=== PATIENT | female | born 1955 | race Caucasian/White ===

== ENCOUNTER 2025-01-04 10:10 | Outpatient (CLI) | payer MEDICARE, SELFPAY ==
[2025-01-04 17:25] LABS: Basophils # 0.1 K/mm3 (0-0.2); Basophils % 0.9 % (0.1-2.0); Eosinophils # 0.2 Kmm3 (0.0-0.4); Eosinophils % 3.3 % (0.1-12.0); Hematocrit 43.4 % (37.0-47.0); Hemoglobin 13.5 g/dL (12.2-16.2); Immature Granulocytes # 0.01 10^3uL; Immature Granulocytes % 0.1 %; Lymphocytes # 2.3 K/mm3 (0.7-4.5); Lymphocytes % 34.1 % (10-50); Mean Corpuscular HGB Conc 31.1 g/dL (31.8-35.4); Mean Corpuscular Hemoglobin 27.7 pg (27.0-31.2); Mean Corpuscular Volume 88.9 fl (81-99); Mean Platelet Volume 12.9 fl (7.4-10.4); Monocytes # 0.8 K/mm3 (0.1-1.0); Monocytes % 11.4 % (1.7-9.3); Neutrophils # 3.4 K/mm3 (1.8-7.8); Neutrophils % 50.2 % (37.0-80.0); Nucleated Red Blood Cells # 0 10^3/uL; Nucleated Red Blood Cells % 0 %; Platelet Count 230 K/mm3 (142-424); Red Blood Count 4.88 M/mm3 (4.20-5.40); Red Cell Distribution Width 14.6 % (11.5-17.5); White Blood Count 6.7 K/mm3 (4.8-10.8)
[2025-01-04 17:51] LABS: Alanine Aminotransferase 20 U/L (12-78); Albumin Level 4.5 g/dl (3.5-5.0); Albumin/Globulin Ratio 1.5 (1.1-1.8); Alkaline Phosphatase 86 U/L (38-126); Anion Gap 13.1 mEq/L (5-15); Aspartate Amino Transferase 28 U/L (14-36); Bilirubin,Total 1.2 mg/dl (0.2-1.3); Blood Urea Nitrogen 34 mg/dl (7-17); Calcium 9.7 mg/dl (8.4-10.2); Carbon Dioxide 27 mmol/L (22.0-30.0); Chloride 104 mmol/L (98-107); Chol/HDL Ratio 4.4 (1-3.5); Cholesterol 220 mg/dl (140-200); Estimated Glomerular Filt Rate 99 ml/min (>60); GFR (African American) 119 ML/MIN (>60); Glucose 77 mg/dl (74-100); HDL Cholesterol 50 mg/dl (40-60); Potassium 5.1 mmoL/L (3.5-5.1); Sodium 139 mmol/L (136-145); Total Protein,Serum 7.5 g/dl (6.3-8.2); Triglycerides 180 mg/dl (30-150); VLDL Cholesterol 36 mg/dL (0-40)
[2025-01-04 18:02] LABS: Direct LDL Cholesterol 126.05 mg/dL (100-129)
[2025-01-04 19:12] LABS: Iron 112 ug/dL (37-170)
[2025-01-04 19:21] LABS: Total Iron Binding Capacity 322 ug/dL (265-497)
[2025-01-04 19:48] LABS: Ferritin 64.8 ng/ml (11.1-264)
[2025-01-04 19:55] LABS: HIV Combo NEGATIVE (Negative)
[2025-01-04 20:02] LABS: Hepatitis C Ab Qual. W/ RFX NEGATIVE (Negative)
[2025-01-05 06:15] LABS: Hepatitis B Surface Antigen Negative (Negative)
== END 2025-01-04 23:59 | disposition home or self-care (01) ==
LOC: LAB.DROPOF 01-05 12:41
PROVIDERS: PCP Nurse Practitioner Family; Visit Provider Nurse Practitioner Family
DX: Z00.00 Encounter for general adult medical examination without abnormal findings (principal); Z11.59 Encounter for screening for other viral diseases; Z11.4 Encounter for screening for human immunodeficiency virus [HIV]; D64.9 Anemia, unspecified; E78.5 Hyperlipidemia, unspecified
CPT/HCPCS: 80053; 80061; 82728; 83540; 83550; 84443; 85025; 86803; 87340; 87389

== ENCOUNTER 2025-07-17 10:51 | Outpatient (CLI) | payer MEDICARE, SELFPAY ==
[2025-07-18 15:48] LABS: Hematocrit 41.8 % (37.0-47.0); Hemoglobin 13.1 g/dL (12.2-16.2); Immature Granulocytes % 0.3 %; Mean Corpuscular HGB Conc 31.3 g/dL (31.8-35.4); Mean Corpuscular Hemoglobin 28.4 pg (27.0-31.2); Mean Corpuscular Volume 90.7 fl (81-99); Nucleated Red Blood Cells % 0 %; Platelet Count 264 K/mm3 (142-424); Red Blood Count 4.61 M/mm3 (4.20-5.40); Red Cell Distribution Width-SD 50.9 fL; White Blood Count 7.1 K/mm3 (4.8-10.8)
== END 2025-07-17 23:59 | disposition home or self-care (01) ==
LOC: LAB.DROPOF 07-18 20:25
PROVIDERS: PCP Nurse Practitioner Family; Visit Provider Nurse Practitioner Family
DX: E78.00 Pure hypercholesterolemia, unspecified (principal); E61.1 Iron deficiency; Z86.2 Personal history of diseases of the blood and blood-forming organs and certain disorders involving the immune mechanism
CPT/HCPCS: 85025

== ENCOUNTER 2025-07-30 09:29 | Outpatient (CLI) | payer MEDICARE, SELFPAY ==
--- NOTE | 2025-07-30 09:39 | XR_ITS ---
FINAL REPORT TECHNIQUE: 3 views right knee CLINICAL HISTORY: right knee pain after injury COMPARISON: None FINDINGS: AP, lateral and oblique views of the right knee were obtained. There is no prior exam for comparison. There is no acute fracture or dislocation of the right knee. Tricompartment degenerative change is present, most pronounced in the medial compartment. The soft tissues are normal. There is no joint effusion. IMPRESSION: No acute osseous abnormality of the right knee. Tricompartment degenerative change, most pronounced in the medial compartment. Reviewed, Interpreted and Dictated by Sabien Dey MD Transcribed by Quyen Alexander Authenticated and . [facility]
[2025-07-30 09:40] LABS: Hematocrit 41.9 % (37.0-47.0); Hemoglobin 13.7 g/dL (12.2-16.2); Immature Granulocytes % 0.3 %; Mean Corpuscular HGB Conc 32.7 g/dL (31.8-35.4); Mean Corpuscular Hemoglobin 28.5 pg (27.0-31.2); Mean Corpuscular Volume 87.3 fl (81-99); Nucleated Red Blood Cells % 0 %; Platelet Count 276 K/mm3 (142-424); Red Blood Count 4.80 M/mm3 (4.20-5.40); Red Cell Distribution Width-SD 46.5 fL; White Blood Count 7.8 K/mm3 (4.8-10.8)
[2025-07-31 09:21] LABS: Albumin Level 4.7 g/dl (3.5-5.0); Chloride 102 mmol/L (98-107); Potassium 4.2 mmoL/L (3.5-5.1); Sodium 139 mmol/L (136-145)
[2025-07-31 09:24] LABS: Alanine Aminotransferase 21 U/L (12-78); Albumin/Globulin Ratio 1.6 (1.1-1.8); Alkaline Phosphatase 83 U/L (38-126); Anion Gap 13.2 mEq/L (5-15); Aspartate Amino Transferase 29 U/L (14-36); Bilirubin,Total 1.2 mg/dl (0.2-1.3); Blood Urea Nitrogen 20 mg/dl (7-17); Carbon Dioxide 28 mmol/L (22.0-30.0); Cholesterol 198 mg/dl (140-200); Creatinine,Serum 0.70 mg/dl (0.52-1.04); Estimated Glomerular Filt Rate 82 ml/min (>60); GFR (African American) 100 ML/MIN (>60); Globulin 3.0 g/dL (1.3-3.2); Iron 92 ug/dL (37-170); Total Protein,Serum 7.7 g/dl (6.3-8.2); Triglycerides 146 mg/dl (30-150)
[2025-07-31 09:25] LABS: Calcium 10.2 mg/dl (8.4-10.2); Glucose 91 mg/dl (74-100); HDL Cholesterol 60 mg/dl (40-60)
[2025-07-31 09:36] LABS: Total Iron Binding Capacity 335 ug/dL (265-497)
== END 2025-07-30 23:59 | disposition home or self-care (01) ==
LOC: LAB 09:30
PROVIDERS: PCP Nurse Practitioner Family; Visit Provider Nurse Practitioner Family
DX: M17.11 Unilateral primary osteoarthritis, right knee (principal); S89.91XA Unspecified injury of right lower leg, initial encounter; Z86.2 Personal history of diseases of the blood and blood-forming organs and certain disorders involving the immune mechanism
CPT/HCPCS: 36415; 73562; 80053; 80061; 83540; 83550; 85025

== ENCOUNTER 2025-07-30 09:49 | Outpatient (RCR) | payer MEDICARE, SELFPAY ==
--- NOTE | 2025-07-30 10:40 | HMH.OPLYMPH ---
Rehab Lymphedema Evaluation Rehab Lymphedema Evaluation Start: 07/30/25 10:30 Freq: Status: Active Protocol: Document 07/30/25 10:30 WENDY (Rec: 07/30/25 10:40 [email or web address] [id number]) E-signed By Asa Raymond, PT Subjective/History History History This is the initial PT lymphedema eval for Stefanie Zaldivar, 70 yowf who presents with c/o increased B LE heaviness and swelling for many years. She presents with significant B lower leg varicose veins and reports they have been present for many years. She states, My legs just feel heavier these days and it makes it hard to get around sometimes, but I also have bad knees and that doesn't help. She reports no c/o pain at this time in B LE. She reports no significant PMH other than OA. Subjective Subjective Currently no pain, 0/10. TTP 1/4 in B lower legs. Minimal palpable edema without pitting at this time. Mild increased dryness of the skin with significant varicose veins noted to B LE. Lymphedema Eval Classification of Lymphedema Secondary Lymphedema Yes: CVI Stemmer's sign Stemmer's Sign no Stage of Lymphedema Lymphedema stages Stage 0 (subjective c/o heaviness and aching) Skin Changes Dry Skin Yes Skin Folds Yes Discoloration of Yes Skin Other Changes Yes Pain Scale Pain Scale (0-10) 0 Affected Extremities Areas Affected by Right Lower Extremity,Left Lower Extremity Lymphedema/Edema Wound Problems/Impairments Impairments Problems/ Palpation Tenderness,Impaired Endurance,Impaired Impairmments Walking,Impaired Standing,Impaired Shower/Bathing, Impaired Household Care,Impaired Stair Climbing, Impaired Incline Stepping,Impaired Stepping on Uneven Surface,Impaired Recreational Activities,Increased Edema,Lymphedema Present,Impaired Self Care/Self Management Prognosis Rehab Potential Good Comment Pt currently has minimal palpable edema in B lower legs and is most appropriate for home management of her symptoms. Will attempt to order compression garments for pt to use at home to manage her CVI. No current need for Skilled outpatient lymphedema treatment. Clinical Impression Consistent with Yes Diagnosis Lymphedema Patient Goals Lymphedema Patient Goals Lymphedema Short No Goals Needed Term Patient Goals Outpatient Therapy Plan of Care Treatment Plan May Include Eval/Re-Eval Yes Frequency Times per week 0 Duration Number of Weeks 0 Addendums This patient is a No candidate for social or vocational rehab ? Patient/Guardian Yes verbally acknowledges understanding of treatment program and consents to further treatment? Patient/Guardian Yes verbally acknowledges understanding of diagnosis, prognosis and goals for treatment? Eval Complexity PT Charges 98300 - Moderate Complexity PHYSICIAN CERTIFICATION: I certify the specified therapy services for Stefanie Zaldivar are required, authorized, and reviewed every 30 days.
== END 2025-07-30 23:59 | disposition home or self-care (01) ==
LOC: PT 09:49
PROVIDERS: PCP Nurse Practitioner Family; Visit Provider Nurse Practitioner Family
DX: I89.0 Lymphedema, not elsewhere classified (principal); M25.561 Pain in right knee
CPT/HCPCS: 97162